=== PATIENT | female | born 1995 | race Hispanic/Latino ===

== ENCOUNTER 2023-04-06 12:26 | Emergency (ER) | payer SELFPAY ==
--- OUTSIDE RECORDS SUMMARY | 2023-04-06 12:29 | XMS REPORT | Continuity of Care Document ---
:1995 Author Organization [facility] t Address [address] [place] [address] Care Team Providers Name Role Phone PCP, PATIENT DOES NOT HAVE A Primary Care Physician SYLVESTER Mancilla Attending Clinician Unavailable Sylvester Burris MD Attending Clinician Payers Payer Name Policy Type Policy Number Effective Date Expiration Date [facility] [id number] 2022 STAR 00:00:00 Problems This patient has no known problems. Allergies, Adverse Reactions, Alerts Allergy Allergy Status Severity Reaction(s) Onset Inactive Treating Comm ents Source Name Type Date Date Clinician NO KNOWN Drug Active Univers ALLERGIE Class ity of [facility] Social History Social Habit Start Date Stop Date Quantity Comments Source Exposure to 2022-08-18 2022-08-28 Not sure [facility] SARS-CoV-2 (event) 00:00:00 11:48:00 Medica l Branch Sex Assigned At [birth year] [facility] y of [place] 00:00:00 00:00:00 Medical Branch Smoking Status Start Date Stop Date Source Tobacco smoking consumption [facility] Branch Medications Ordered Filled Start Stop Current Ordering Indication Dosage Frequency Signature Comments Components Source Medication Medication Date Date Medication? Clinician (SIG) Name Name hyoscyamine No .25mg 0.25 mg, Univers sulfate 08-28 Sublingual ity o f (LEVSIN/SL) 20:30: 08:29 , ONCE Christiano as sublingual 00 :00 NOW, 1 Medical tablet 0.25 dose, On Bran ch mg 08/28/22 at 1430, Routine ketorolac 2023-0 2023- No 20mg 20 mg, Unive rs (TORADOL) 08-2810 Oral, ONCE ity of tablet 20 20:30: 20:06 NOW, 1 [place] mg 00 :00 dose, On Medical Fri Branch 08/28/22 at 1430, JAMAAL cefTRIAXone 0 2022- No 1000mg 1,000 mg, Univers (ROCEPHIN) 08-28 Intramuscu it y of injection 20:15: 20:06 [place] 1,000 mg 00 :00 NOW, 1 Medical dose, On Branch 08/28/22 at 1415, JAMAAL
Re ason for Anti-Infec tive: Documented Infection< br>Documen stephenie Infection Site: Urine
D uration of Therapy: Other (see Comments) acetaminoph No 975mg 975 mg, U nivers en 08-28 Oral, ONCE ity of (TYLENOL) 19:00: 20:06 NOW, 1 [place] tablet 975 00 :00 dose, On Medic al mg Fri Branch 08/28/22 at 1300, JAMAAL cefpodoxime 0 Yes [id number] 100mg Take 1 Univers 100 mg 3-10 tablet by ity of tablet 00:00: mouth in [place] 00 the Medical morning Branch and 1 tablet in the evening. hyoscyamine Yes [id number] .25mg Place 2 Univers sulfate 3-10 tablets ity of (LEVSIN/SL) 00:00: under the [place] 0.125 mg 00 tongue Medical sublingual every 6 Branch tablet (six) hours as needed (Abdominal pain or cramping). acetaminoph 0 Yes [id number] 650mg Take 1 Univers en (TYLENOL 3-10 tablet by ity of ARTHRITIS 00:00: mouth [place] PAIN) 650 00 every 8 Medical mg CR (eight) Branch tablet hours as needed for Pain. Vital Signs Vital Name Observation Time Observation Value Comments Source Systolic blood 2022-08-28 17:49:00 139 mm[Hg] Univer sity of pressure [facility] Diastolic blood 2022-08-28 17:49:00 99 mm[Hg] Unive rsity of pressure [facility] Heart rate 2022-08-28 17:49:00 104 /min [facility] Body temperature 2022-08-28 17:49:00 38.28 Maryann [facility] Respiratory rate 2022-08-28 17:49:00 18 /min [facility] Body height 2022-08-28 17:49:00 167.6 cm [facility] Body weight 2022-08-28 17:49:00 68.04 kg [facility] BMI 2022-08-28 17:49:00 24.21 kg/m2 [facility] Oxygen saturation in 2022-08-28 17:49:00 98 /min [facility] Arterial blood by [facility] Pulse oximetry Branch Procedures Procedure Date / Time Performed Performing Clinician [facility] e POCT TEST 2022-08-28 19:26:00 Sylvester Burris [facility] URINALYSIS 2022-08-28 18:01:00 Sylvester Burris [facility] [place] [facility] RAPID INFLUENZA A/B 2022-08-28 18:01:00 Sylvester Burris [facility] NOTICE OF PRIVACY 2022-08-28 17:45:03 Doctor Unassigned, No [facility] PRACTICES Name [facility] CONSENT/REFUSAL FOR 2022-08-28 17:43:41 Doctor Unassigned, No [facility] DIAGNOSIS AND Name [facility] [place] TREATMENT Encounters Start End Encounter Admission Attending Care Care Encounter Source Date/Time Date/Time Type Type Clinicians Facility Department ID 2022-08-28 2022-08-28 Emergency X [place] [facility] ERT [id number] [facility] 11:49:00 14:13:00 SYLVESTER whitehead [facility] 2022-08-28 2022-08-28 Emergency [place] [facility] [id number] [facility] 11:49:00 14:13:00 Sylvester PARKER [id number] [facility] [id number] [facility] [id number] [facility] 084 Branch Results Test Description Test Time Test Comments Results Result Comments Source POCT TEST 2022-08-28 19:26:00 Test Item Value Reference Range Interpretation Comme nts POCT PREG (test code = 1605) negative On board controls acceptable with C Line (test code = 3574) present POCT PREG LOT # (test code = 3575) [id number] POCT PREG TEST DATE (test code = 3576) 11-19-2023 Lab Interpretation (test code = 43264-1) [facility]
[2023-04-06] MEDS ORDERED: IBUPROFEN 200 MG TAB PO ONE (13:13)
--- NOTE | 2023-04-06 13:45 | RAD REPORT ---
[facility]15 pm CLINICAL HISTORY: DYSPNEA COMPARISON: No comparisons TECHNIQUE: Portable AP view of the chest. FINDINGS: The lungs are clear. No pneumothorax or effusion. The cardiomediastinal contours are unre markable. IMPRESSION: No acute cardiopulmonary process.
--- NOTE | 2023-04-06 13:51 | ER ---
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 patient denies being around anyone sick recently. Coronavirus screen: Client presents with at least one sign or symptom that may indicate coronavirus-19. Ebola Screen: No symptoms or risks identified at this time. Initial Sepsis Screen: Does the patient meet any 2 criteria? HR > 90 bpm. Does the patient have a suspected source of infection? No. Patient's initial sepsis screen is negative. Initial Sepsis Screen: Does the patient meet any 2 criteria?. Risk Assessment: Do you want to hurt yourself or someone else? Patient reports no desire to harm self or others. Onset of symptoms was April 06, 2023. 12:55 Method Of Arrival: Wheelchair ap3 12:55 Acuity: SARAH 3 ap3 Triage Assessment: 12:57 General: Appears ill, Behavior is calm, cooperative, appropriate for age. General: ap3 Reports chills for fever for feeling ill for fatigue for. Pain: Complains of pain in generalized body aches. Neuro: Level of Consciousness is awake, alert, obeys commands, Oriented to person, place, time, situation. Cardiovascular: Patient's skin is warm and dry. Respiratory: Reports shortness of breath cough that is Airway is patent Respiratory effort is even, unlabored, Respiratory pattern is regular, symmetrical, Onset: The symptoms/episode began/occurred gradually, the patient has mild shortness of breath. 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 - Social history:: Smoking status: Patient denies any tobacco usage or history of. Screenin:57 [facility] ED Fall Risk Assessment (Adult) History of falling in the last 3 months, ap3 including since admission No falls in past 3 months (0 pts). Abuse screen: Denies threats or abuse. Nutritional screening: No deficits noted. Tuberculosis screening: No symptoms or risk factors identified. Assessment: 13:56 Respiratory: Airway is patent Breath sounds are clear. ap3 13:57 Cardiovascular: Rhythm is regular. ap3 Vital Signs: 12:55 BP 120 / 72; Pulse 128; Resp 18; Temp 100.7(O); Pulse Ox 100% ; Weight 74.84 kg; ap3 13:57 Temp 99.7(O); ap3 ED Course: 12:27 Patient arrived in ED. rg4 12:32 Nathaly Aguirre FNP-C is PHCP. kb 12:32 Joshua Christensen DO is Attending Physician. kb 12:46 Strep Sent. kj1 12:56 Triage completed. ap3 12:57 Arm band placed on right wrist. ap3 13:13 Chest Single View XRAY In Process Unspecified. EDMS 13:56 No provider procedures requiring assistance completed. Patient did not have IV access ap3 during this emergency room visit. 13:57 Provided Education on: discharge instructions. ap3 13:57 Patient has correct armband on for positive identification. ap3 Administered Medications: 13:02 Drug: Ibuprofen PO 600 mg PO once Route: PO; ap3 13:57 Follow up: Response: No adverse reaction; Temperature is decreased ap3 Medication: 13:57 VIS not applicable for this client. ap3 Outcome: 13:50 Discharge ordered by MD. kb 13:57 Discharged to home via wheelchair, with family, ap3 13:57 Condition: good 13:57 Discharge instructions given to patient, Instructed on discharge instructions, follow up and referral plans. Demonstrated understanding of instructions, follow-up care, 13:57 Patient left the ED. ap3 Signatures: Dispatcher [employer] EDMS Nathaly Aguirre FNP-C FNP-Ckb Garcia, Rubi rg4 Hilary Bauer RN RN ap3 Jen Aguirre kj1
--- NOTE | 2023-04-06 13:51 | EDPHYS ---
Physician Documentation [facility] Name: Cindi Steel Age: 28 yrs Sex: Female : 1995 Arrival Date: 04/06/2023 Time: 12:26 Bed IW4 Private MD: ED Physician Joshua Christensen HPI: 04/06 13:40 This 28 yrs old Female presents to ER via Wheelchair with complaints of Pain kb All Over, Breathing Difficulty. 13:40 The patient or guardian reports difficulty breathing, flu symptoms, low-grade fever, kb myalgias. Onset: The symptoms/episode began/occurred today. Severity of symptoms: At their worst the symptoms were mild, moderate, in the emergency department the symptoms are unchanged. Modifying factors: The symptoms are alleviated by nothing, the symptoms are aggravated by nothing. Associated signs and symptoms: Pertinent positives: fever. The patient has not experienced similar symptoms in the past. The patient has not recently seen a physician. 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 - Social history:: Smoking status: Patient denies any tobacco usage or history of. ROS: 13:38 Abdomen/GI: Negative for abdominal pain, nausea, vomiting, diarrhea, and constipation, kb 13:38 Constitutional: Positive for body aches, fatigue, fever, malaise, 13:38 Respiratory: Positive for shortness of breath, 13:38 All other systems are negative, Exam: 13:38 Constitutional: This is a well developed, well nourished patient who is awake, alert, kb and in no acute distress. Head/Face: Normocephalic, atraumatic. Cardiovascular: Regular rate Respiratory: Respirations even and unlabored. No increased work of breathing. Talking in full sentences Abdomen/GI: Soft, non-tender. No distention Skin: Warm, dry with normal turgor. Normal color. MS/ Extremity: Pulses equal, no cyanosis. Neurovascular intact. Full, normal range of motion. Neuro: Awake and alert, GCS 15, oriented to person, place, time, and situation. Moves all extremities. Normal gait. 13:38 ENT: External ear(s): are unremarkable, Ear canal(s): are normal, TM's: are normal, Posterior pharynx: Airway: normal, no evidence of obstruction, Tonsils: bilaterally enlarged, with erythema, Uvula: normal, midline, swelling, that is moderate, erythema, that is mild, exudate, is not appreciated, Vital Signs: 12:55 BP 120 / 72; Pulse 128; Resp 18; Temp 100.7(O); Pulse Ox 100% ; Weight 74.84 kg; ap3 13:57 Temp 99.7(O); ap3 MDM: 12:32 Patient medically screened. kb 13:39 Differential diagnosis: strep, flu, covid, uri, pneumonia. Data reviewed: vital signs, kb nurses notes. Test considered but Not performed: Labs: flu and covid tests considered, but pt refused. Counseling: I had a detailed discussion with the patient and/or guardian regarding the historical points, exam findings, and any diagnostic results supporting the discharge/admit diagnosis, lab results, radiology results, the need for outpatient follow up, a family practitioner, to return to the emergency department if symptoms worsen or persist or if there are any questions or concerns that arise at home. 04/06 12:39 Order name: Strep; Complete Time: 13:13 kb 04/06 12:39 Order name: Chest Single View XRAY; Complete Time: 13:50 kb Administered Medications: 13:02 Drug: Ibuprofen PO 600 mg PO once Route: PO; ap3 13:57 Follow up: Response: No adverse reaction; Temperature is decreased ap3 Disposition: 15:28 I was immediately available on-site in the Emergency Department for consultation in the ca3 care of the patient. Disposition Summary: 04/06/23 13:50 Discharge Ordered Notes: Location: Home kb Problem: new kb Symptoms: are unchanged kb Condition: Stable kb Diagnosis - Streptococcal pharyngitis kb Followup: kb - With: Emergency Department - When: As needed - Reason: Worsening of condition Followup: kb - With: Private Physician - When: 2 - 3 days - Reason: Recheck today's complaints, Continuance of care, Re-evaluation by your physician Discharge Instructions: - Discharge Summary Sheet kb - Strep Throat, Adult, [id number] kb Forms: - Medication Reconciliation Form kb - Thank You Letter kb - Antibiotic Education kb - Prescription Opioid Use kb - Patient Portal Instructions kb - Leadership Thank You Letter kb Prescriptions: - Augmentin 875-125 mg Oral Tablet - take 1 tablet ORAL route every 12 hours for 10 days; 20 tablet; Refills: 0, kb Product Selection Permitted Signatures: Dispatcher [employer] Nathaly Centeno, Hilary Beltran RN RN ap3 Joshua Christensen DO DO ms3
[2023-04-06 14:01] VITALS: BP 120/72; O2SAT 100
[2023-04-06 14:02] VITALS: TEMP 99.7
== END 2023-04-06 13:57 | disposition home or self-care (01) ==
LOC: ER 12:26
DX: J02.0 Streptococcal pharyngitis (principal)
CPT/HCPCS: 71045; 87081; 99283